=== PATIENT | male | born 1970 | race Caucasian/White ===

== ENCOUNTER 2023-07-21 12:11 | Emergency (ER) | payer MEDICAID, SELFPAY ==
[2023-07-21 12:12] VITALS: BP 170/90; PULSE 70; RESP 18; TEMP 35.9; O2SAT 100; BMI 28.7
--- NOTE | 2023-07-21 12:14 | ED.RN ---
CALLED FOR ekg
--- NOTE | 2023-07-21 12:24 | RAD_ITS ---
STUDY: X-RAY CHEST REASON FOR EXAM: Male, 53 years old. Chest pain TECHNIQUE: Single AP portable view of the chest. COMPARISON: None. FINDINGS: EKG electrodes are seen. There is a 1.8 cm by 0.7 cm nodule in the right mid lung. There is no demonstrated pleural abnormality. Normal size heart. Normal mediastinum and david. Normal visualized pulmonary arteries. Normal visualized aortic arch and descending thoracic aorta. Normal visualized thoracic spine. Normal visualized ribs, clavicles, and shoulders. There is no demonstrated abnormality of the visualized soft tissue structures of the upper abdomen. RAD/Chest 1 View (Portable) IMPRESSION: 1.8 cm x 0.7 cm nodule in the right mid lung. Correlation with a CT scan is recommended. Electronically Signed: Osorio Rich MD at 13:04 EST ,
[2023-07-21 12:32] LABS: Absolute Lymphocyte Count 2.78 X10^3/uL (0.83-4.51); Absolute Neutrophil Count 5.6 X10^3/uL (2.0-7.7); Basophil# 0.09 X10^3/uL; Basophil% 0.9 % (0-1); Eosinophil# 0.26 X10^3/uL; Eosinophils% 2.7 % (0-5); Hematocrit 46.5 % (40-54); Hemoglobin 14.5 g/dL (13.0-16.5); Lymphocyte # 2.78 X10^3/ul (0.83-4.51); Mean Corp Hgb Conc 31.2 g/dL (32-36); Mean Corpuscular Hgb 27.2 pg (27.0-32.0); Mean Corpuscular Volume 87.2 fL (80-94); Mean Platelet Vol. 9.7 fl (6.2-12.0); Monocyte# 0.79 X10^3/uL; Monocyte% 8.2 % (0-10); NRBC Flagged by Analyzer 0 % (0-5); Neutrophil # 5.63 X10^3/uL (2.7-7.7); Neutrophil % 58.9 % (47-70); Platelet Count 428 K/mm3 (150-450); RBC Distribution Width CV 13.7 % (11.6-14.6); RBC Distribution Width SD 43.8 fl (35.1-43.9); Red Blood Count 5.33 M/mm3 (4.6-6.2); White Blood Count 9.6 K/mm3 (4.4-11.0)
[2023-07-21 12:35] VITALS: BP 142/74; PULSE 60; RESP 14; O2SAT 97
[2023-07-21 12:49] LABS: Anion Gap 1 (5-15); BUN 12 mg/dL (7-18); BUN/Creat Ratio 13.9 RATIO (10-20); Calcium,Total 9.1 mg/dL (8.5-10.1); Chloride 108 mmol/L (98-107); Creatinine, Serum 0.86 mg/dL (0.70-1.30); EST Glomerular Filtration Rate 98 mL/min (>60); Est Glom Filt Rate - Afr Amer 118 mL/min (>60); Glucose 120 mg/dL (74-106); Potassium 4.4 mmol/L (3.5-5.1); Sodium Level 138 mmol/L (136-145); Troponin-I HS (w/2H Reflex) 36 pg/mL (3.0-78.0)
--- NOTE | 2023-07-21 13:17 | RAD_ITS ---
STUDY: X-RAY - LEFT SHOULDER REASON FOR EXAM: Male, 53 years old. Left shoulder pain. No history of fall. TECHNIQUE: 4 view(s) of the shoulder. COMPARISON: None. FINDINGS: Normal glenohumeral articulation. Normal acromioclavicular joint. Normal acromion. Normal humeral head and visualized proximal humerus. The soft tissue structures are unremarkable. Normal visualized pulmonary apex. RAD/Shoulder min 2 Views IMPRESSION: Normal x-ray examination of the shoulder. Electronically Signed: Osorio Rich MD at 13:41 EST ,
[2023-07-21] MEDS: Ketorolac 15 MG/ML Vial IV (13:43)
[2023-07-21 13:59] VITALS: BP 142/85; PULSE 55; RESP 17; O2SAT 99
[2023-07-21 14:28] LABS: Reflex Troponin-HS? (from REC) Y
--- NOTE | 2023-07-21 14:37 | ED.VIS.CHEST ---
HPI History of Present Illness Chief Complaint: Chest Pain Narrative Narrative: 53-year-old male presenting with left shoulder pain which he states started overnight. He states he was working outside his truck and slipped and fell and caught himself with the left arm causing some sort of strain to the left shoulder. He complains of pain in the left trapezius region. Patient states that chest pain and lightheadedness on and off for the last week. Nothing makes it worse or better. Does not have any cardiac history that he knows of. He does not see a doctor on a regular basis. He is a smoker with a history of hypertension and he states he is prediabetic. Does not have any shortness of breath. PFSH PFSH Medical History no medical history Home Medications naproxen 500 mg tablet (Naprosyn) 500 mg PO BID PRN pain #30 tabs 07/21/23 [Rx Last Taken Unknown] Allergy/AdvReac Type Severity Reaction Status Date / Time Penicillins Allergy Hives Verified 07/21/23 12:35 Social History Smoking Status: Unknown if ever smoked ROS ROS ED Constitutional Constitutional ED: Denies chills, fever(s) or sweats Eyes Eyes: Denies blurry vision or change in vision ENT ENT ED: Denies ear pain, rhinorrhea or sore throat Cardiovascular Cardiovascular: Reports chest pain; Denies palpitations or racing heartbeat Respiratory/Chest Respiratory/Chest: Denies cough, dyspnea or sputum Gastrointestinal Gastrointestinal: Denies abdominal pain, constipation, diarrhea or vomiting Genitourinary Genitourinary ED: Denies dysuria, hematuria or urinary frequency Musculoskeletal Musculoskeletal: Reports other Details: Left shoulder pain ; Denies arthralgias, myalgias or neck pain Integumentary Denies abscess, Abrasions or rash Neurologic Neurologic: Denies headache(s), paresthesias or weakness Psychiatric Psychiatric: Denies anxiety, depression, suicidal ideation or suicidal thoughts Endocrine Endocrinology: Denies polydipsia or polyuria EXAM Physical Exam Const Vital Signs: 07/21/23 12:12 07/21/23 12:35 07/21/23 12:38 Temperature 96.6 F L Temperature Source Temporal Pulse Rate 70 60 Respiratory Rate 18 14 Blood Pressure 170/90 H 142/74 H Blood Pressure Mean 116 96 Pulse Ox 100 97 Oxygen Delivery Method Room Air Room Air Room Air 07/21/23 13:59 Temperature Temperature Source Pulse Rate 55 L Respiratory Rate 17 Blood Pressure 142/85 H Blood Pressure Mean 104 Pulse Ox 99 Oxygen Delivery Method Positive well nourished General Appearance ED: JEANE FERNANDEZ Reports moist mucous membranes normocephalic and atraumatic Eyes PERRL and EOMs intact bilaterally Chest Wall inspection of chest normal Resp normal respiratory effort and clear to auscultation bilaterally Auscultation: Negative for rales, rhonchi or wheezes Cardio regular rate and regular rhythm GI normal to inspection, nondistended, normoactive bowel sounds Neuro oriented x3 and CN's II-XII intact bilaterally Sensorium / Orientation: awake Psych mental status grossly normal Skin no rashes or lesions noted Heart Score History: Slightly/Non-Suspicious ECG: Normal Age: </= 45 years Risk Factors: No Risk Factors Troponin: </= Normal Limit Score: 0 MDM MDM MDM Narrative Medical decision making narrative: Patient presenting with left shoulder pain and chest pain. From a cardiac standpoint he describes his pain as scratchy which makes it unlikely to be acute coronary syndrome however it is in the differential. Will obtain a CBC to assess for blood cell count, hemoglobin, platelets. BMP to assess renal function electrolytes. High-sensitivity troponin EKG to assess for ischemia/dysrhythmia. Chest x-ray to rule out pneumonia. CBC and BMP unremarkable. High-sensitivity troponin is 36. EKG on my interpretation shows a sinus rhythm at a ventricular rate of 61 bpm without sign of ischemic change. Chest x-ray my interpretation shows no acute process however it is noted that the patient has a 1.8 x 0.7 cm lung nodule in the right lung. This was discussed with the patient at length that I did discuss with him he needs follow-up and he states that he does not have any primary care provider but does have health insurance. I recommended he go through his insurance to find a primary care provider as he will need follow-up for the lung nodule as well as the chest pain. I feel at this point he is stable for discharge return precautions were discussed. Impression: 1. Chest pain 2. Lightheadedness 3. Lung nodule Lab Data Attestation: I reviewed the patient's lab results. Labs: Laboratory Results - last 24 hr 07/21/23 12:20 WBC 9.6 RBC 5.33 Hgb 14.5 Hct 46.5 MCV 87.2 MCH 27.2 MCHC 31.2 L RDW Std Deviation 43.8 RDW Coeff of Trudy 13.7 Plt Count 428 MPV 9.7 Immature Gran % (Auto) 0.300 Neut % (Auto) 58.9 Lymph % (Auto) 29.0 Vance % (Auto) 8.2 Eos % (Auto) 2.7 Baso % (Auto) 0.9 Absolute Neuts (auto) 5.6 Absolute Lymphs (auto) 2.78 Nucleated RBC % 0 Sodium 138 Potassium 4.4 Chloride 108 H Carbon Dioxide 29.0 Anion Gap 1 L BUN 12 Creatinine 0.86 Estim Creat Clear Calc 113.30 Est GFR (MDRD) Af Amer 118 Est GFR (MDRD) Non-Af 98 BUN/Creatinine Ratio 13.9 Glucose 120 H Calcium 9.1 Troponin I High Sens 36 Radiography Diagnostic Testing: Clinical Impression(s) from Imaging Studies Chest X-Ray 07/21/23 12:24 IMPRESSION: 1.8 cm x 0.7 cm nodule in the right mid lung. Correlation with a CT scan is recommended. Electronically Signed: Osorio Rich MD at 13:04 EST , Shoulder X-Ray 07/21/23 13:17 IMPRESSION: Normal x-ray examination of the shoulder. Electronically Signed: Osorio Rich MD at 13:41 EST , Discharge Plan Triage Chief Complaint: Chest Pain ED Provider: Mike Hernandez Dx/Rx/DC Orders Instructions: ED Chest Pain, Noncardiac, ED Pulmonary Nodule, Solitary Prescriptions: New naproxen [Naprosyn] 500 mg tablet 500 mg PO BID PRN (Reason: pain) Qty: 30 0RF Primary Care Provider: Care Physician,No Primary Referrals: [facility] [Outside] - 3-5 Days Care Physician,No Primary [Primary Care Provider] - Disposition Disposition: Home, Self Care Discharge Date/Time: 07/21/23 14:12
== END 2023-07-21 14:12 | disposition home or self-care (01) ==
PROVIDERS: Emergency Provider Student in an Organized Health Care Education/Training Program; Visit Provider Student in an Organized Health Care Education/Training Program
DX: R07.9 Chest pain, unspecified (principal); R42 Dizziness and giddiness; R91.1 Solitary pulmonary nodule; F17.200 Nicotine dependence, unspecified, uncomplicated
CPT/HCPCS: 71045; 73030; 80048; 84484; 85025; 93005; 96374; 99284; A4216